=== PATIENT | male | born 1990 | race Caucasian/White ===

== ENCOUNTER 2017-05-19 18:05 | Emergency (ER) | payer OTHER ==
[~2017-05-19] VITALS: Ht 177.8 cm; Wt 70.3 kg
[~2017-05-19 18:05] MED LIST: IBUPROFEN 600600 M1 PO; PENICILLIN V P500 MG PO; ZPAK PO
[2017-05-19] MEDS ORDERED: TESSALON PERLE100 MG PO (19:42)
[2017-05-19 19:55] VITALS: BP 120/74
== END 2017-05-19 19:45 | disposition home or self-care (01) ==
LOC: ER 18:05
DX: J11.1 Influenza due to unidentified influenza virus with other respiratory manifestations (principal); F17.210 Nicotine dependence, cigarettes, uncomplicated; Z91.041 Radiographic dye allergy status; Z88.6 Allergy status to analgesic agent

== ENCOUNTER 2017-06-23 13:04 | Emergency (ER) | payer OTHER ==
[~2017-06-23] VITALS: Ht 175.3 cm; Wt 79.4 kg
[~2017-06-23 13:04] MED LIST changes: +TESSALON PERLE100 MG PO
[2017-06-23 14:06] LABS: ABSOLUTE NEUTROPHILS 7.6 thou/uL (1.4-8.2); BASOPHILS 0.5 % (0.0-2.0); EOSINOPHILS 0.5 % (0.0-3.0); HEMATOCRIT 42.7 % (42.0-52.0); HEMOGLOBIN 14.7 gm/dL (14.0-18.0); MCH 30.7 pg (26.0-34.0); MCHC 34.4 g/dL (28.0-37.0); MCV 89.4 fL (80.0-100.0); PLATELET COUNT 195 thou/uL (150-400); RBC 4.78 mil/uL (4.50-6.00); RDW 13.2 % (10.5-14.5); WBC 10.4 thou/uL (4.0-11.0)
[2017-06-23 14:11] LABS: CALCIUM 9.5 mg/dL (8.5-10.1); POTASSIUM 3.6 mmol/L (3.5-5.1)
[2017-06-23] MEDS ORDERED: CLEOCIN HCL150 MG PO (14:30)
== END 2017-06-23 14:44 | disposition home or self-care (01) ==
LOC: ER 13:04
PROVIDERS: Emergency Medicine
DX: K04.7 Periapical abscess without sinus (principal); F17.210 Nicotine dependence, cigarettes, uncomplicated; Z88.6 Allergy status to analgesic agent; Z91.041 Radiographic dye allergy status